=== PATIENT | male | born 1995 | race Caucasian/White ===

== ENCOUNTER 2018-07-10 22:49 | Emergency (ER) | payer OTHER ==
[2018-07-10] MEDS ORDERED: ONDANSETRON HCL INJ/PF 4 MG/2 ML SDV IV ONE (23:04)
--- NOTE | 2018-07-10 23:09 | ER Document Report ---
ED General - General Chief Complaint: ETOH Abuse Stated Complaint: ETOH Time Seen by Provider: 07/10/18 23:03 Mode of Arrival: Medic Information source: Patient, Emergency Med Personnel - HPI Patient complains to provider of: alcohol intoxication Onset: Other - 22-year-old male presents for evaluation of recurrent vomiting in the setting of having drank alcohol tonight. 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 Has no known medical problems takes no medicines. No reports of trauma or co-ingestion. Past Medical History - General Information source: Patient - Social History Smoking Status: Unknown if Ever Smoked Cigarette use (# per day): No Chew tobacco use (# tins/day): Yes Frequency of alcohol use: Social Drug Abuse: None Lives with: Family Family History: None Review of Systems - Review of Systems -: Yes All other systems reviewed and negative Physical Exam - Vital signs Vitals: Temp Pulse Resp BP Pulse Ox 97.6 F 85 14 126/71 H 98 07/10/18 23:19 07/10/18 23:19 07/10/18 23:19 07/10/18 23:19 07/10/18 23:19 - General General appearance: Appears well, Lethargic In distress: None - HEENT Head: Normocephalic Eyes: Normal Conjunctiva: Normal Cornea: Normal Extraocular movements intact: Yes Eyelashes: Normal Pupils: PERRL - Respiratory Respiratory status: No respiratory distress Chest status: Nontender Breath sounds: Normal Chest palpation: Normal - Cardiovascular Rhythm: Regular Heart sounds: Normal auscultation Murmur: No - Abdominal Inspection: Normal Distension: No distension Tenderness: Nontender - Back Back: Normal - Extremities General upper extremity: Normal inspection, Nontender, Normal ROM, Normal strength General lower extremity: Normal inspection, Nontender, Normal ROM, Normal strength - Neurological Neuro grossly intact: Yes Cognition: Confused Orientation: AAOx4 Neto Coma Scale Eye Opening: Spontaneous Neto Coma Scale Verbal: Oriented Neto Coma Scale Motor: Obeys Commands Neto Coma Scale Total: 15 Cranial nerves: Normal Cerebellar coordination: Normal Motor strength normal: LUE, RUE, LLE, RLE - Psychological Associated symptoms: Normal mood Course - Re-evaluation Re-evalutation: 07/10/18 23:15 Is a 22-year-old man who presents for what appears to be uncomplicated intoxication of alcohol. We will plan for observation. In the emergency department obtaining clinical sobriety and obtaining a trusted friend. Have administered Zofran to this patient as he did have nausea and some vomiting. 07/11/18 00:03 Patient's Ana Dempsey presented, notes that he is able to get the patient home, the patient has clinically improved he is more sober than previously, appears well, is able to drink without any obvious emesis. 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 His is been made aware of the situation as well and is agreeable with the current course of action. - Vital Signs Vital signs: Temp Pulse Resp BP Pulse Ox 97.6 F 85 14 126/71 H 98 07/10/18 23:19 07/10/18 23:19 07/10/18 23:19 07/10/18 23:19 07/10/18 23:19 Discharge - Discharge Clinical Impression: Alcohol intoxication Qualifiers: Complication of substance-induced condition: uncomplicated Qualified Code(s): F10.920 - Alcohol use, unspecified with intoxication, uncomplicated Vomiting Qualifiers: Vomiting type: unspecified Vomiting Intractability: unspecified Nausea presence : unspecified Qualified Code(s): R11.10 - Vomiting, unspecified Condition: Good Disposition: HOME, SELF-CARE Additional Instructions: Your seen today in the emergency department after getting drunk at a bar. You were monitored, your given medicine to help with your nausea and received some fluid. In the future you should avoid heavy alcohol consumption as it is dangerous to your health. Return for worsening fevers or chills inability to eat or drink or if you feel worse. Referrals: DEAN CORTEZ, [Primary Care Provider] - Follow up as needed
[2018-07-10 23:28] VITALS: BP 126/71
== END 2018-07-10 23:40 | disposition home or self-care (01) ==
LOC: ER 22:49
DX: F10.920 Alcohol use, unspecified with intoxication, uncomplicated (principal); R11.10 Vomiting, unspecified
CPT/HCPCS: 99284; 96374; J2405